=== PATIENT | male | born 1985 | race Caucasian/White ===

== ENCOUNTER 2022-07-08 16:34 | Emergency (ER) | payer MEDICAID ==
[~2022-07-08] VITALS: Ht 165.1 cm; Wt 64.0 kg
[2022-07-08] MEDS ORDERED: DICYCLOMINE 10 MG/5 ML ORAL SYR PO STA (21:12)
[2022-07-08] MEDS ORDERED: VISCOUS LIDOCAINE 2% 15 ML UDC PO STA (21:12)
[2022-07-08] MEDS ORDERED: MAGNESIUM/ALUMINUM HYDROXIDE/SIMETHICONE 30ML UDC PO STA (21:12)
[2022-07-08] MEDS ORDERED: KETOROLAC 15MG/ML VIAL * ONE (21:15)
[2022-07-08 21:26] VITALS: BP 129/91
[2022-07-08 21:36] LABS: BASOPHILS % 0.9 % (0.0-2.0); EOSINOPHILS % 4.1 % (0.0-5.0); HEMATOCRIT. 43.7 % (42.0-52.0); HEMOGLOBIN. 15.2 g/dL (14.0-18.0); LYMPHOCYTES % 30.5 % (20.0-50.0); MEAN CORPUSCULAR HEMOGLOBIN 31.8 pg (28.0-32.0); MEAN CORPUSCULAR VOLUME 91.5 fL (80.0-94.0); MEAN PLATELET VOLUME 7.5 fl (7.4-10.4); MONOCYTES % 8.1 % (2.0-8.0); NEUTROPHILS % 56.4 % (40.0-76.0); PLATELET 364 x1000/uL (130-400); RED BLOOD CELL COUNT 4.77 mill/uL (4.7-6.1); RED CELL DISTRIBUTION WIDTH 12.5 % (11.6-14.6)
[2022-07-08 21:38] LABS: CHLORIDE 105 mEq/L (98-107)
[2022-07-08 21:40] LABS: CLARITY URINE CLEAR (CLEAR); COLOR URINE YELLOW (YELLOW); PH URINE 6.5 (4.5-8.0); PROTEIN URINE TRACE (NEGATIVE)
[2022-07-08 21:41] LABS: KETONES URINE NEGATIVE (NEGATIVE); LEUKOCYTE ESTERASE URINE NEGATIVE (NEGATIVE); NITRITE URINE NEGATIVE (NEGATIVE); OCCULT BLOOD URINE NEGATIVE (NEGATIVE); UROBILINOGEN URINE 0.2 E.U./dL (0.2-1.0)
[2022-07-08 22:03] LABS: PROTHROMBIN TIME 10.3 sec (9.6-11.0)
[2022-07-09] MEDS ORDERED: IOHEXOL-300 100 ML BOTTLE ONE (00:40)
== END 2022-07-09 | disposition home or self-care (01) ==
LOC: ER 16:34
DX: K52.9 Noninfective gastroenteritis and colitis, unspecified (principal); Z98.890 Other specified postprocedural states
CPT/HCPCS: 36415; 74177; 80053; 81003; 83605; 83690; 85025; 85610; 99285; J1885; Q9967